=== PATIENT | male | born 1975 | race Caucasian/White ===

== ENCOUNTER 2016-05-04 21:23 | Observation (INO) | payer OTHER ==
[~2016-05-04] VITALS: Ht 175.3 cm; Wt 94.4 kg
[2016-05-04 22:23] LABS: CHLORIDE 103 mEq/L (99-109); POTASSIUM 3.6 mEq/L (3.7-5.4); SODIUM 139 mEq/L (136-147)
[2016-05-04 22:25] LABS: GLUCOSE 144 mg/dL (70-99)
[2016-05-04 22:26] LABS: ANION GAP 10 MEQ/L (2-14)
[2016-05-04 22:29] LABS: GFR ESTIMATE (CALCULATED) > 59 mL/min/
[2016-05-04 22:30] LABS: UREA NITROGEN (BUN) 15 mg/dL (9-23)
[2016-05-04 22:34] LABS: HEMATOCRIT 40.8 % (38.0-50.0); MCH 30.5 PG (29.0-34.0); MCHC 36.5 G/DL (30.0-36.0); MCV 83.4 FL (86-99); MEAN PLAT.VOLUME 9.6 uM^3 (9.0-12.4); PLATELET COUNT 260 K/uL (156-360); RBC DIS.WIDTH-SD 35.9 % (39-53); RED BLOOD COUNT 4.89 M/uL (4.00-5.50); WHITE BLOOD COUNT 7.9 K/uL (4.1-10.2)
[2016-05-04 22:37] LABS: TROP-I INTERPRETATION NEGATIVE; TROPONIN-I < 0.01 ng/mL (0.0-0.30)
[2016-05-04] MEDS ORDERED: ALEVE220 MG PO (23:16)
[2016-05-05 05:08] LABS: TROP-I INTERPRETATION NEGATIVE; TROPONIN-I < 0.01 ng/mL (0.0-0.30)
[2016-05-05 07:30] VITALS: BP 137/78
[2016-05-05 10:59] LABS: TROP-I INTERPRETATION NEGATIVE; TROPONIN-I < 0.01 ng/mL (0.0-0.30)
== END 2016-05-05 14:48 | disposition home or self-care (01) ==
LOC: EME 21:23 → EDOF 05-05 00:05 → 5WEST 05-05 00:05
PROVIDERS: Physician Assistant
DX: R07.9 Chest pain, unspecified (principal); R94.31 Abnormal electrocardiogram [ECG] [EKG]; R00.2 Palpitations; F17.200 Nicotine dependence, unspecified, uncomplicated; E87.6 Hypokalemia; R06.02 Shortness of breath; Z82.49 Family history of ischemic heart disease and other diseases of the circulatory system; Z80.3 Family history of malignant neoplasm of breast
CPT/HCPCS: 71020; 80048; 84484; 85027; 93005; 99281; 99285; G0378; J7030